=== PATIENT | female | born 1945 | race Caucasian/White ===

== ENCOUNTER 2017-11-17 19:13 | Inpatient (IN) | payer OTHER, MEDICAID ==
[~2017-11-17] VITALS: Ht 162.6 cm; Wt 86.3 kg
[~2017-11-17 19:13] MED LIST: AMBIEN 5 MG TABL5 M1 PO; ASPIR 8181 MG PO; CENTRUM SILVER1 EAC4 PO; CLONIDINE0.1 PO; COUMADIN 4 MG TA4 M1 PO; EXELON1 EAC1 TOP; FISH OIL 1,001000 M2 PO; GLIPIZIDE 10 MG10 MG PO; GLUCOSAMINE S1000 M3 PO; GLYBURIDE 2.52.5 MG PO; HYDRALAZINE 2525 MG PO; LASIX 40 MG TAB40 M2 PO; LISINOPRIL20 MG PO; MAGOX 400400 MG PO; METFORMIN HCL500 MG PO; MIRAPEX0.125 MG PO; OMEPRAZOLE 20 M20 MG PO; SIMVASTATIN40 MG PO; SYNTHROID125 MCG PO; TYLENOL EXTRA500 MG PO; VITAMIN D1000 UNI1 PO
[2017-11-17 19:19] VITALS: BP 185/103
[2017-11-17] MEDS ORDERED: JANUVIA100 MG PO (19:23)
[2017-11-17] MEDS ORDERED: CLEOCIN HCL150 MG PO (19:24)
[2017-11-17 19:48] LABS: ABSOLUTE EOSINOPHILS 0.1 thou/uL (0.0-0.7); ABSOLUTE LYMPHOCYTES 1.4 thou/uL (0.8-5.3); ABSOLUTE MONOCYTES 0.6 thou/uL (0.0-1.2); ABSOLUTE NEUTROPHILS 3.4 thou/uL (1.6-8.1); BASOPHILS 0.8 %; EOSINOPHILS 2.2 %; HEMATOCRIT 35.6 % (37.0-47.0); HEMOGLOBIN 11.6 gm/dL (12.0-15.0); MCH 28.8 pg (26.0-34.0); MCHC 32.4 g/dL (28.0-37.0); MCV 88.9 fL (80.0-100.0); MONOCYTES 11.1 %; MPV 8.8 fl. (7.2-11.1); NUCLEATED RBCS 0 /100WBC; PLATELET COUNT* 192 thou/uL (150-400); POLYS 60.9 %; RBC 4.01 mil/uL (4.20-5.00); RDW-CV 14.8 % (10.5-14.5); WBC 5.6 thou/uL (4.0-11.0)
[2017-11-17 19:56] LABS: ANION GAP 5 mmol/L (7-16); BUN 23 mg/dL (7-18); CALCIUM 8.7 mg/dL (8.5-10.1); CHLORIDE 103 mmol/L (98-107); CO2 31 mmol/L (21-32); GLUCOSE 192 mg/dL (70-99); POTASSIUM 4.7 mmol/L (3.5-5.1); SODIUM 139 mmol/L (136-145)
[2017-11-17 19:59] LABS: INR 2.4; PROTIME 23.4 Seconds (9.20-11.50)
[2017-11-17 20:07] LABS: ALBUMIN 3.3 g/dL (3.4-5.0); ALKALINE PHOSPHATASE 102 U/L (46-116); LIPASE 87 U/L (73-393); NT-PRO BRAIN NAT PEPTIDE 1412 pg/mL (<300); SGOT 15 U/L (15-37); SGPT 27 U/L (30-65); TOTAL BILIRUBIN 0.3 mg/dL (<0.1-1.0); TOTAL PROTEIN 6.5 g/dL (6.4-8.2); TROPONIN-I LEVEL <0.06 ng/mL (<0.06)
[2017-11-17 21:47] LABS: URINE BILIRUBIN NEGATIVE (Negative); URINE BLOOD NEGATIVE (Negative); URINE CLARITY CLEAR; URINE COLOR STRAW; URINE GLUCOSE-RANDOM NEGATIVE (Negative); URINE KETONES NEGATIVE (Negative); URINE LEUKOCYTES-REFLEX NEGATIVE (Negative); URINE NITRITE-REFLEX NEGATIVE (Negative); URINE PROTEIN NEGATIVE (Negative); URINE UROBILINOGEN 0.2 E.U./dl (0.2-1.0)
[2017-11-17 22:33] VITALS: BP 144/90
[2017-11-17 23:12] VITALS: BP 150/86
[2017-11-18] MEDS ORDERED: SYNTHROID150 MCG PO (00:30)
[2017-11-18] MEDS ORDERED: COUMADIN 2 MG TA2 M1 PO (00:38)
--- NOTE | 2017-11-18 01:49 | NUR ---
PT ADMITTED DUE TO HTN URGENCY THAT WAS RESOLVED IN THE ED WITHOUT INTERVENTION, EDEMA, AND DYSPNEA, PT AND [id number] REPORTED THE PT HAD HAD SOA/DIZZINESS FOR A WHILE BUT IT GOT WORSE TODAY AND RUTH ANN CATHERINE TOLD THEM TO BE SEEN IF SHE GOT WORSE, PT CURRENTLY SEEN BY DR MENDOSA AND IS WEARING A HALTER MONITOR, PT [id number] STATED HER AFIB IS CHRONIC BUT THEY THINK HER DIZZINESS IS FROM WHEN HER HR DROPS INTO THE 20-30 AND SHE IS BEING EVALUATED FOR A PACE MAKER, PT IS A/OX4, 2L NC, AF ON THE MONITOR, UP WITH 1 TO BSC, NO C/O PAIN OR SOA AT TIME OF ADMIT, PT REFUSED TO TAKE HER PERSONAL UNDERWEAR AND PAD OFF, PT HAS STRESS INCONT, HOME MED REC CORRECTED IN [facility], ADMIT ASSESSMENT COMPLETED, FALL PRECAUTIONS IN PLACE, VSS, WILL CONT TO MONITOR.
[2017-11-18 03:22] LABS: MCH 28.6 pg (26.0-34.0); MCHC 32.5 g/dL (28.0-37.0); MCV 88.1 fL (80.0-100.0); RBC 3.86 mil/uL (4.20-5.00); RDW-CV 15.1 % (10.5-14.5); WBC 6.3 thou/uL (4.0-11.0)
[2017-11-18 03:51] LABS: ALBUMIN 3.1 g/dL (3.4-5.0); CALCIUM 8.6 mg/dL (8.5-10.1); CREATININE 1.1 mg/dL (0.6-1.3); POTASSIUM 4.4 mmol/L (3.5-5.1); TOTAL BILIRUBIN 0.2 mg/dL (<0.1-1.0); TOTAL PROTEIN 5.7 g/dL (6.4-8.2)
[2017-11-18 03:57] VITALS: BP 150/88
[2017-11-18 08:00] VITALS: BP 162/76
--- NOTE | 2017-11-18 10:23 | EKG ---
[place] [address] ELECTROCARDIOGRAM REPORT Name: MAGGIE MORALES Room: [address] ADM IN [facility].#: [id number] Admission: 11/17/17 Attend Phys: Jojo Spann Discharge: Date of : 47 Report #: [id number] THIS REPORT FOR: //name// [facility] ED Test Date: 2017-11-17 Test Time: 19:20:46 Pat Name: MAGGIE MORALES Department: Room: [facility] Gender: F Forging Die Finisher: 9 : 1945 Requested By: Yovana Sue Order Number: [id number] MD: Gordon Dominguez Measurements Intervals [place] Rate: 87 P: [place]: QRS: -50 QRSD: 119 T: 104 QT: 391 QTc: 471 Interpretive Statements Atrial fibrillation Left anterior fascicular block LVH with secondary repolarization abnormality Compared to ECG 08/16/2017 10:59:46 Left ventricular hypertrophy now present Early repolarization now present Electronically Signed On 11-18-2017 10:23:27 ADAPTIVE PHYSICAL EDUCATION TEACHER by Gordon Dominguez [email or web address] <ELECTRONICALLY SIGNED> By: Gordon Dominguez MD, FAC 11/18/17 1023 1920 1920 Gordon Dominguez MD, [facility] /EPI
[2017-11-18 11:50] VITALS: BP 170/86
--- NOTE | 2017-11-18 11:57 | NUR ---
CM ASSESSMENT: Pt is A&O. Resides at home alone. Independent with ADLs, continues to cook and clean, children provide transportation needs. Pt has a walker and cane at home that she can use if needed, Pt stated that she hasn't needed to use either of them recently. Pt has a cpap, that she uses sometimes, does not remember the name of the company that provided it, states it has been many years ago. No hx of HH. Hx of skilled at [facility] many years ago. Supportive family that is involved in POC. Pt's goal is to return home once medically stable. No needs anticipated.
[2017-11-18 16:53] VITALS: BP 125/85
--- NOTE | 2017-11-18 19:05 | NUR ---
SYLVESTER RESTING IN BED. UP AD CHERELLE IN ROM, LOW RISK FOR FALLS. PATIENT AOX4. PATIENT DOES SUFFER FROM DEMENTIA BUT HAS NO OUTWARD EXPRESSION TODAY. AWAITNNG INR DECREASE FOR PACEMAKER PLACEMENT. HOULRY ROUNDING COMPLETED FOR PATIENT SAFETY.
[2017-11-18 20:10] VITALS: BP 135/93
[2017-11-19 00:16] VITALS: BP 102/63
--- NOTE | 2017-11-19 03:10 | NUR ---
ASSUMED CARE AT 1999, ASSESSMENT CHARTED. PATIENT ALERT/ORIENTED X4, SITTING UP IN CHAIR IN ROOM. UP WITH SBA, WALKED AROUND SECOND FLOOR X2 WITH STAFF AT SIDE. DENIES PAIN OR NEEDS. REFUSING SCD'S. HS SNACK GIVEN WITH HS MEDS. BED/CHAIR ALARM ON. CALL LIGHT WITHIN REACH, ENCOURAGED TO CALL FOR NEEDS.
[2017-11-19 04:20] VITALS: BP 120/68
[2017-11-19 05:44] LABS: INR 2.2
[2017-11-19 06:28] LABS: CHOLESTEROL 134 mg/dL (<200); HDL CHOLESTEROL 57 mg/dL (>40); LDL CHOLESTEROL 56 mg/dL (<100); TC:HDL 2.4 Ratio (Not establshd); TRIGLYCERIDE 109 mg/dL (<150); VLDL 22 mg/dL (<40)
[2017-11-19 06:29] LABS: SERUM ASSESSMENT Clear
[2017-11-19 08:00] VITALS: BP 135/92
[2017-11-19 11:52] VITALS: BP 141/95
--- NOTE | 2017-11-19 12:38 | CON ---
[address] [address] CONSULTATION Name: CARMENMAGGIE KAY Room: [address] IN .R.#: [id number] Admission: 11/17/17 Attend Phys: Jojo Spann Discharge: Date of : 47 Report #: [id number] THIS REPORT FOR: //name// CC: CIERRA Morgan DATE OF SERVICE: 11/18/2017 HISTORY OF PRESENT ILLNESS: The patient is a 72-year-old single white female who I was asked to see in the hospital today after she complained of being short of breath. The patient presented in approximately 2008 with a myocardial infarction. She apparently had coronary artery stenting and eventually underwent coronary artery bypass surgery times and mitral valve repair in [place]. She subsequently moved to [place] and I followed her for the last several years. Her last echocardiogram in June 2017, showed normal ejection fraction, with only mild residual regurgitation of the mitral valve. She apparently had evidence of previous stroke on MRI and has memory loss. However, she continues to go to the gym in the [employer] [place] for exercise. She denies any recent chest pain. She does have chronic atrial fibrillation and has been chronically anticoagulated. I last saw her in the cardiology clinic in June 2017. Recently, she complained of feeling episodes of lightheadedness. She saw my nurse practitioner last month, who recommended an event recorder. Event recorder showed permanent atrial fibrillation. She had slow rates of atrial fibrillation with rates down into the 30s. She also had rates up to the 140s. She is having pauses up to 3.4 seconds in duration. My nurse practitioner discussed with the patient that she might require a pacemaker. Last night, the patient was at home when she felt lightheaded and short of breath. Her daughter brought her to the emergency room last night and she was admitted. She denied any recent fever, cough, increasing edema. She has had no syncope, but has several episodes a week where she felt lightheaded even while sitting. Recently, her blood pressure has been elevated. PAST MEDICAL HISTORY: Otherwise is significant for carpal tunnel surgery, cataract extraction, cholecystectomy, shoulder surgery, and knee replacement. She has a history of hypertension, diabetes, and hyperlipidemia. She has a history of memory loss and previous stroke. CURRENT MEDICATIONS: Consists of losartan/HCTZ, lisinopril, clonidine, glipizide, Synthroid, metformin, simvastatin, warfarin, omeprazole, Exelon, Mirapex for restless legs syndrome, Lasix as needed for edema, and glyburide. ALLERGIES: She has intolerance to SULFA DRUGS. FAMILY HISTORY: Her [place] [address] CONSULTATION Name: MAGGIE MORALES Room: [address] IN ..#: [id number] Admission: 11/17/17 Attend Phys: Jojo Spann Discharge: Date of : 47 Report #: [id number] SOCIAL HISTORY: She is . No history of smoking or alcohol abuse. REVIEW OF SYSTEMS: She has had no history of asthma, peptic ulcer disease, liver disease, kidney disease, or cancer. She has chronic back pain, has received stem cell treatment in the past. No history of psychiatric illness. PHYSICAL EXAMINATION: GENERAL: Revealed an elderly female who appeared in no acute distress. VITAL SIGNS: She had a blood pressure 160/90, pulse is 60. She is afebrile. HEENT: She was anicteric. Conjunctivae are pink. Mucous members are moist. NECK: Veins do not appear distended. No carotid bruits. CHEST: Clear to auscultation. HEART: Irregular rhythm. No significant murmur. ABDOMEN: Soft. EXTREMITIES: Had no edema. Dorsalis pedis pulse cannot be palpated. SKIN: Cool and dry. NEUROLOGIC: Nonfocal. LYMPH: No adenopathy. MUSCULOSKELETAL: No joint effusion. PSYCHIATRIC: Mood is appropriate. Her ECG on admission showed atrial fibrillation, left axis deviation. Her workup in the emergency room, she had a portable chest x-ray that showed cardiomegaly, no pulmonary edema. LAB WORK: Sodium 139, creatinine 1.0, glucose 266. Her liver function studies were normal. Troponin was 0.06. BNP 1412. INR was 2.4. White blood cell count 6.3, hemoglobin 11. Urinalysis negative protein, negative for leukocytes. IMPRESSION AND RECOMMENDATIONS: 1. Sick sinus syndrome. The patient with history of dizzy spells and pauses. Recommend permanent pacemaker. 2. Atrial fibrillation. Hold warfarin. We will need to hold off pacemaker until INR is less than 1.6. 3. Coronary artery disease. Previous bypass surgery. No recent angina. Since the patient is on warfarin, I would not recommend aspirin. 4. Diabetes. 5. Previous stroke. 6. Hypertension. The patient is on multiple medications. 7. Previous mitral valve repair. 8. Dementia. 9. Shortness of breath. Possibly related to slow rates of atrial fibrillation. <ELECTRONICALLY SIGNED> By: Gordon Dominguez MD, [facility] 11/19/17 1238 0843 [id number] Marcelino Dominguez MD, FACC /nt
[2017-11-19 16:38] VITALS: BP 116/76
[2017-11-19 18:36] LABS: INR 1.7; PROTIME 16.7 Seconds (9.20-11.50)
[2017-11-19 20:00] VITALS: BP 125/81
--- NOTE | 2017-11-19 22:23 | NUR ---
RECIEVED REPORT AND ASSUMED CARE OF PATIENT AT 1930. MACHINE FASTENER IN PLACE TRACING AFIB. ASSESSMENT AND VITALS COMPLETED CHARTED, VSS. PATIENT A&OX4. PATIENT ON ROOM AIR WITH O2 SATS 99%. PATIENT DENIES PAIN AND DISCOMFORT. PATIENT STATES SHE IS "WORRIED ABOUT THE PACEMAKER PLACEMENT TOMORROW." COMFORT AND REASSURANCE GIVEN TO PATIENT, PATIENT VERBALIZES APPRECIATION FOR GIVING HER COMFORT. PATIENT INFORMED THAT SHE WILL BE NPO AT MIDNIGHT, SNACK PROVIDED BEFORE BEDTIME. PATIENT'S GOAL IS TO REST COMFORTABLY AND DECREASE ANXIETY ABOUT PROCEDURE TOMORROW. CALL LIGHT WITHIN REACH
[2017-11-20] VITALS (10 sets, daily range): BP systolic 114–150; BP diastolic 70–96
[2017-11-20 05:24] LABS: INR 1.4; PROTIME 13.5 Seconds (9.20-11.50)
--- NOTE | 2017-11-20 05:47 | NUR ---
PATIENT PROGRESSING TOWARDS GOALS: PATIENT REMAINED NPO FOR PACEMAKER PROCEDURE. PATIENT REPORTS "FEELING BETTER ABOUT THE PROCEDURE AND HER DAUGHTER IS GOING TO MONITOR HER AFTER THE PROCEDURE." PATIENT HAS C/O PAIN IN LEFT FOOT, PATIENT SAYS IT IS ARTHRITIS. TYLENOL ADMINISTERED THIS AM AND ICE PACK APPLIED TO FOOT. PATIENT RECIEVED A BATH THIS AM. PATIENT IS NOW RESTING IN BED. HOURLY ROUNDING OBSERVED. CALL LIGHT WITHIN REACH
--- NOTE | 2017-11-20 11:00 | NUR ---
ASSUMED PT CARE AT 0700 PT IS ALERT AND ORIENTED X 4 PT IS A FALL RISK BED ALARM IS ON, RESIDENTIAL MORTGAGE UNDERWRITER CALLED ASKED ABOUT PT ALLERGY TO CONTRAST STATED TO ORDER PER PROTOCOL BENADRYL AND SOULMEDROL AND GIVE 45 MINUTES WHICH IS 0930 BEFORE RESIDENTIAL MORTGAGE UNDERWRITER GETS PT, BENADRYL AND SOULMEDROL GIVEN, PT STATES SHE HAS PAIN AND WOULD LIKE TYLENOL AND MEDICATION FOR RESTLESS LEG SYNDROME PT EDUCATED ON MEDICATION TIMES SINCE BOTH MEDS WERE GIVEN AROUND 0600 AND THESE MEDS ARE SCHEDULED, PT IS UP WITH ASSIST X 1 TO BSC, PT IS SR WITH 1ST ON MONITOR, PT IS PLEASANT AND COOPERATIVE, PT WENT DOWN FOR PACEMAKER PT MAY DISCHARGE AFTER PROCEDURE, WILL CONTINUE TO MONITOR
--- NOTE | 2017-11-20 14:04 | NUR ---
This RN agrees with the assessments of Ada CASTILLO
[2017-11-21 00:03] VITALS: BP 139/86
[2017-11-21 04:12] VITALS: BP 167/82
--- NOTE | 2017-11-21 05:25 | NUR ---
PATIENT REMAINS STABLE THROUGHOUT SHIFT AND IS PROGRESSING TOWARDS GOALS: VSS. PATIENT A&OX4, FORGETFUL AT TIMES. NETWORK SECURITY ANALYST TRACING AFIB. PATIENT DENIES PAIN AND DISCOMFORT. PACEMAKER SITE WELL APPROXIMATED WITH MINIMAL BRUISING AND REDNESS. PATIENT HAS RESTED WELL THROUGHOUT THE NIGHT AND IS ANTICIPATING DISCHARGE TODAY. HOURLY ROUNDING OBSERVED. CALL LIGHT WITHIN REACH
[2017-11-21 08:24] VITALS: BP 198/98
[2017-11-21 08:27] VITALS: BP 198/98
--- NOTE | 2017-11-21 09:35 | NUR ---
ASSUMED PT CARE AT 0700 PT IS ALERT AND ORIENTED X 4 PT IS FORGETFUL, PT C/O PAIN GAVE TYLENOL WHICH PT STATES HELPS PT BLOOD PRESSURE ELEVATED GAVE SCHEDULED BLOOD PRESSURE MEDS, CARDIOLOGY CLEARED PT TO DISCHARGE NOTIFIED DR CORDOVA WHO STATED HE WAS FINE WITH PT DISCHARGING SINCE CARDIOLOGY FILLED PUT PAPERWORK HE DID NOT NEED TO SEE PT, IV REMOVED, WILL CONTINUE TO MONITOR
--- NOTE | 2017-11-21 11:23 | CARD ---
[address] [address] CARDIAC CATH REPORT Name: MAGGIE MORALES Room: [address] IN ..#: [id number] Admission: 11/17/17 Attend Phys: Jojo Spann Discharge: 11/21/17 Date of : 47 Report #: [id number] THIS REPORT FOR: //name// APPROVED REPORT Patient Status: In-Patient Room #: 218 Event Personnel: Gordon Dominguez Drug Worker, Asher Gustafson Hintermaier, Elena RN RN, Marylin Arnold RN Monitor, Nicole Yap RN RN Exam: Insertion of Single Chamber Permanent Pacemaker Indications: Sick Sinus Syndrome/Tachy Naresh Syndrome The patient is a 72 year-old female with a history of Atrial Fibrillation. Implanted Devices: single chamber mri compatible biotronic pacemaker generator with ventricular active fixation pacing lead. Procedure The patient underwent informed consent. We discussed the details of the procedure including the risks, which include, but not limited to bleeding, infection, vascular damage, cardiac perforation, and pneumothorax. She understood these risks and was willing to proceed. As such, she was brought to the EP/Cardiac Catheterization laboratory in a fasting and sedated state and prepped and draped in a sterile fashion, received IV antibiotics prior to initiation of the procedure and a venogram was performed showing patency of the left axillary vein. The patient underwent conscious sedation, with no related complications. The patient was brought to the EP/Cardiac Catheterization laboratory and the left chest and shoulder were prepped and draped in a sterile manner. During this case, Fluoroscopy and low osmolar contrast were used for imaging. The left subclavian region was infiltrated with 2% Lidocaine with Epinephrine subcutaneous anesthesia. A transverse incision was made in the left upper chest cavity. The subcutaneous pocket was formed via blunt dissection. Percutaneous venous access was achieved and an introducer sheath was inserted into the left Subclavian vein. Sheaths were positions using the modified Seldinger technique Capturing and sensing [place] [address] CARDIAC CATH REPORT Name: MAGGIE MORALES ANTHONY Room: [address]#: [id number] Admission: 11/17/17 Attend Phys: Jojo Spann Discharge: 11/21/17 Date of : 47 Report #: [id number] The ventricular lead was interrogated and with adequate threshold for pacing and sensing Patient had documented Contrast Allergy and was premedicated with Solumedrol 125mg IV and Benadryl 50mg IV prior to procedure. Electrode Parameters R Wave: 11 mv Ventricular Threshold: 0.6 v Ventricular Resistance: 741 ohm Single Chamber The ventricular lead was attached to the appropriate receptacle on the pulse generator and set screws firmly tightened to insure adequate contact and stability. The lead and pulse generator were placed into the subcutaneous pocket. Sharp and sponge counts were confirmed to be correct. At this time the pocket was closed subcutaneously with a 0 Vicryl and the skin was closed with a 4.0 Vicryl. The operative site was dressed in sterile fashion with skin affix and the patient was transferred to the floor in stable condition. Complications The patient tolerated the procedure well and there were no complications associated with the procedure. since the patient was on warfarin, the pocket was coated with d-stat flowable. Findings Specimens Removed: N/A Estimated Blood Loss: 10 cc Conclusion successful placement of a single lead pacemaker <ELECTRONICALLY SIGNED> By: Gordon Dominguez MD, FACC 11/21/17 1123 1123 [id number] alberto Dominguez MD, FACC /INF
--- NOTE | 2017-11-21 15:39 | EKG ---
[place] [address] ELECTROCARDIOGRAM REPORT Name: MAGGIE MORALES Room: [address] DIS IN M.R.#: [id number] Admission: 11/17/17 Attend Phys: Jojo Spann Discharge: 11/21/17 Date of : 47 Report #: [id number] THIS REPORT FOR: //name// [facility] Test Date: 2017-11-21 Test Time: 08:53:26 Pat Name: MAGGIE MORALES Department: Room: [address] Gender: F Manager Parking: : 1945 Requested By: Gordon Dominguez Order Number: [id number] MD: Luis Torres Measurements Intervals [place] Rate: 89 P: [place]: QRS: -48 QRSD: 120 T: 99 QT: 403 QTc: 491 Interpretive Statements Atrial fibrillation LVH with IVCD, LAD and secondary repol abnrm Borderline prolonged QT interval Compared to ECG 11/17/2017 19:20:46 Intraventricular conduction delay now present Left anterior fascicular block no longer present Electronically Signed On 11-21-2017 15:39:05 PILL COATER by Luis Torres [email or web address] <ELECTRONICALLY SIGNED> By: Luis Torres MD, FACC 11/21/17 1539 0853 0853 Luis Torres MD, FAC /EPI
== END 2017-11-21 09:57 | disposition home or self-care (01) | DRG 242 ==
LOC: M.ERS 19:13 → M.2W 20:42 → M.TBA-ER 20:42 → M.2W 22:28
PROVIDERS: Emergency Medicine; Internal Medicine Cardiovascular Disease; ADMIT Internal Medicine
PROC: 02HK3JZ Insertion of Pacemaker Lead into Right Ventricle, Percutaneous Approach (ICD-10-PCS; principal; 2017-11-21)
PROC: 0JH604Z Insertion of Pacemaker, Single Chamber into Chest Subcutaneous Tissue and Fascia, Open Approach (ICD-10-PCS; principal; 2017-11-21)
DX: I49.5 Sick sinus syndrome (principal); I50.33 Acute on chronic diastolic (congestive) heart failure; F03.90 Unspecified dementia, unspecified severity, without behavioral disturbance, psychotic disturbance, mood disturbance, and anxiety; I10 Essential (primary) hypertension; I16.0 Hypertensive urgency; Z96.659 Presence of unspecified artificial knee joint; I25.10 Atherosclerotic heart disease of native coronary artery without angina pectoris; I48.91 Unspecified atrial fibrillation; E11.9 Type 2 diabetes mellitus without complications; E78.5 Hyperlipidemia, unspecified; Z98.49 Cataract extraction status, unspecified eye; Z90.49 Acquired absence of other specified parts of digestive tract; Z86.73 Personal history of transient ischemic attack (TIA), and cerebral infarction without residual deficits; Z95.1 Presence of aortocoronary bypass graft; Z79.899 Other long term (current) drug therapy; Z88.8 Allergy status to other drugs, medicaments and biological substances; Z88.1 Allergy status to other antibiotic agents; Z91.041 Radiographic dye allergy status; Z82.49 Family history of ischemic heart disease and other diseases of the circulatory system

== ENCOUNTER 2018-07-19 18:02 | Inpatient (IN) | payer OTHER ==
[~2018-07-19] VITALS: Ht 162.6 cm; Wt 87.1 kg
[~2018-07-19 18:02] MED LIST changes: +CLEOCIN HCL150 MG PO; +COUMADIN 2 MG TA2 M1 PO; +JANUVIA100 MG PO; +SYNTHROID150 MCG PO
[2018-07-19 19:45] VITALS: BP 176/98
[2018-07-19 21:03] LABS: ABSOLUTE LYMPHOCYTES 1.6 thou/uL (0.8-5.3); ABSOLUTE MONOCYTES 0.6 thou/uL (0.0-1.2); ABSOLUTE NEUTROPHILS 4.1 thou/uL (1.6-8.1); BASOPHILS 0.4 %; EOSINOPHILS 0.6 %; HEMATOCRIT 36.4 % (37.0-47.0); HEMOGLOBIN 11.5 gm/dL (12.0-15.0); LYMPHOCYTES 24.7 %; MCHC 31.6 g/dL (28.0-37.0); MCV 88.5 fL (80.0-100.0); MONOCYTES 8.8 %; MPV 8.5 fl. (7.2-11.1); NUCLEATED RBCS 0 /100WBC; PLATELET COUNT* 159 thou/uL (150-400); POLYS 65.5 %; RBC 4.11 mil/uL (4.20-5.00); RDW-CV 15.6 % (10.5-14.5); WBC 6.3 thou/uL (4.0-11.0)
[2018-07-19 21:36] LABS: CALCIUM 9.1 mg/dL (8.5-10.1); CREATININE 0.9 mg/dL (0.6-1.3); POTASSIUM 4.3 mmol/L (3.5-5.1)
[2018-07-19 21:40] LABS: ALBUMIN 3.4 g/dL (3.4-5.0); TOTAL BILIRUBIN 0.4 mg/dL (<0.1-1.0); TOTAL PROTEIN 6.3 g/dL (6.4-8.2)
[2018-07-20] VITALS (7 sets, daily range): BP systolic 107–165; BP diastolic 55–101
[2018-07-20 05:02] LABS: CHOLESTEROL 136 mg/dL (<200); HDL CHOLESTEROL 68 mg/dL (>40); LDL CHOLESTEROL 55 mg/dL (<100); TRIGLYCERIDE 66 mg/dL (<150); VLDL 13 mg/dL (<40)
[2018-07-20 05:04] LABS: SERUM ASSESSMENT CLEAR
[2018-07-20 11:34] LABS: NT-PRO BRAIN NAT PEPTIDE 3015 pg/mL (<300); TROPONIN-I LEVEL <0.06 ng/mL (<0.06)
[2018-07-21] MEDS ORDERED: NAMENDA XR28 MG PO (00:47)
[2018-07-21] MEDS ORDERED: CELEXA 10 MG TA10 M1 PO (00:49)
[2018-07-21] MEDS ORDERED: COUMADIN 4 MG TA4 M1 PO (00:51)
[2018-07-21 04:00] VITALS: BP 153/70
[2018-07-21 09:30] VITALS: BP 163/73
--- NOTE | 2018-07-21 11:33 | EKG ---
[place] [address] ELECTROCARDIOGRAM REPORT Name: JOSELidiaMAGGIE Room: [address] ADM IN M.R.#: [id number] Admission: 07/19/18 Attend Phys: Asher Keith MD Discharge: Date of : 47 Report #: [id number] THIS REPORT FOR: //name// [facility] Test Date: 2018-07-19 Test Time: 21:05:13 Pat Name: MAGGIE MORALES Department: Room: [address] Gender: F Grades 1 Through 5 Teacher: : 1945 Requested By: Asher Keith Order Number: [id number] Reading MD: Gordon Dominguez Measurements Intervals [place] Rate: 83 P: ID: QRS: -51 QRSD: 117 T: 139 QT: 404 QTc: 475 Interpretive Statements Afib/flut and V-paced complexes Left anterior fascicular block LVH w/ repol abnormalities, possible ischemia Compared to ECG 11/21/2017 08:53:26 no change Electronically Signed On 07-21-2018 11:33:09 FOOD SALES CLERK by Gordon Dominguez [email or web address] <ELECTRONICALLY SIGNED> By: Gordon Dominguez MD, FACC 07/21/18 1133 04 04 Gordon Dominguez MD, [facility] /EPI
[2018-07-21 16:00] VITALS: BP 142/73
[2018-07-22] VITALS: BP 144/70
[2018-07-22 04:00] VITALS: BP 160/75
[2018-07-22 05:20] LABS: ABSOLUTE EOSINOPHILS 0.1 thou/uL (0.0-0.7); ABSOLUTE LYMPHOCYTES 1.5 thou/uL (0.8-5.3); ABSOLUTE MONOCYTES 0.6 thou/uL (0.0-1.2); ABSOLUTE NEUTROPHILS 3.5 thou/uL (1.6-8.1); BASOPHILS 0.4 %; HEMATOCRIT 34.9 % (37.0-47.0); HEMOGLOBIN 11.1 gm/dL (12.0-15.0); LYMPHOCYTES 26.4 %; MCH 28.1 pg (26.0-34.0); MCHC 31.7 g/dL (28.0-37.0); MCV 88.4 fL (80.0-100.0); MONOCYTES 10.1 %; MPV 9.6 fl. (7.2-11.1); NUCLEATED RBCS 0 /100WBC; PLATELET COUNT* 147 thou/uL (150-400); POLYS 62.1 %; RBC 3.95 mil/uL (4.20-5.00); RDW-CV 15.4 % (10.5-14.5); WBC 5.6 thou/uL (4.0-11.0)
[2018-07-22 05:25] LABS: CALCIUM 8.8 mg/dL (8.5-10.1); CREATININE 0.9 mg/dL (0.6-1.3); POTASSIUM 3.8 mmol/L (3.5-5.1)
[2018-07-22 09:30] VITALS: BP 155/93
[2018-07-22 12:00] VITALS: BP 110/67
--- NOTE | 2018-07-22 14:24 | 2DMMODE ---
[place] [address] 2 D/M-MODE ECHOCARDIOGRAM Name: JOSELidiaMAGGIE ANTHONY Room: [address] IN [facility]#: [id number] Admission: 07/19/18 Attend Phys: Asher Keith, Discharge: Date of : 47 Date of Service: 07/22/18 1423 Report #: [id number] THIS REPORT FOR: //name// APPROVED REPORT Study performed: 07/22/2018 11:41:59 EXAM: Comprehensive 2D, Doppler, and color-flow Echocardiogram Patient Location: In-Patient Room #: [facility] Status: routine BSA: 1.92 HR: 82 bpm BP: 110/67 mmHg Other Information Study Quality: Good Indications Atrial Fibrillation Chest Pain 2D Dimensions IVSd: 10.68 (7-11mm) LVOT Diam: 20.29 (18-24mm) LVDd: 46.17 mm PWd: 9.25 (7-11mm) Ascending Ao: 31.55 (22-36mm) LVDs: 25.02 (25-40mm) Aortic Root: 27.30 mm Volumes Left Atrial Volume (Systole) LA ESV Index: 30.30 mL/m2 Aortic Valve AoV Peak Prince.: 1.00 m/s AO Peak Gr.: 4.02 mmHg LVOT Max P.75 mmHg AO Mean Gr.: 2.26 mmHg LVOT Mean P.24 mmHg LVOT Max V: 1.09 m/s AO V2 VTI: 15.49 cm LVOT Mean V: 0.69 m/s JENN (VTI): 3.63 cm2 LVOT V1 VTI: 17.40 cm Mitral Valve MV Decel. Time: 342.55 ms MV PHT: 99.34 ms MVA (PHT): 2.21 [place]2 [place] [address] 2 D/M-MODE ECHOCARDIOGRAM Name: JOSELidiaMAGGIE KAY Room: [address] IN [facility]#: [id number] Admission: 07/19/18 Attend Phys: Asher Keith, Discharge: Date of : 47 Date of Service: 07/22/18 1423 Report #: [id number] TDI Medial E' Prince.: 0.10 m/s Lateral E' Prince.: 0.08 m/s Pulmonary Valve PV Peak Prince.: 0.80 m/s PV Peak Gr.: 2.58 mmHg Tricuspid Valve RAP Estimate: 5.00 mmHg TR Peak Gr.: 21.87 mmHg RVSP: 26.87 mmHg PA Pressure: 26.87 mmHg Left Ventricle The left ventricle is normal size. There is normal LV segmental wall motion. There is normal left ventricular wall thickness. Left ventricular systolic function is normal. LVEF is 60-65%. This study is not technically sufficient to allow evaluation of the LV diastolic function. Right Ventricle The right ventricle is normal size. The right ventricular systolic function is normal. Pacemaker lead is present in the right ventricle. Atria Left atrium is mildly dilated. Right atrium is mildly dilated. Aortic Valve The aortic valve is normal in structure. No aortic regurgitation is present. There is no aortic valvular stenosis. Mitral Valve Mitral Valve repair Trace mitral regurgitation. No evidence of mitral valve stenosis. Tricuspid Valve The tricuspid valve is normal in structure. Mild tricuspid regurgitation. Pulmonic Valve The pulmonary valve is normal in structure. There is no pulmonic valvular regurgitation. Great Vessels The aortic root is normal in size. [place]C [place] [address] 2 D/M-MODE ECHOCARDIOGRAM Name: MAGGIE MORALES Room: [address]#: [id number] Admission: 07/19/18 Attend Phys: Asher Keith, Discharge: Date of : 47 Date of Service: 07/22/18 1423 Report #: [id number] collapses >50% with inspiration. Pericardium There is no pericardial effusion. <Conclusion> The left ventricle is normal size. There is normal left ventricular wall thickness. Left ventricular systolic function is normal. LVEF is 60-65%. Pacemaker lead is present in the right ventricle. Left atrium is mildly dilated. Right atrium is mildly dilated. Mitral Valve repair Trace mitral regurgitation. Mild tricuspid regurgitation. IVC is normal in size and collapses >50% with inspiration. <ELECTRONICALLY SIGNED> By: Luis Torres MD, FACC 07/22/18 1423 1423 1423 Luis Torres MD, FACC /INF
--- NOTE | 2018-07-22 15:03 | CON ---
[address] [address] CONSULTATION Name: CARMENMAGGIE ANTHONY Room: [address] IN .R.#: [id number] Admission: 07/19/18 Attend Phys: Asher Keith MD Discharge: Date of : 47 Report #: [id number] THIS REPORT FOR: //name// CC: Asher RIGGS HISTORY OF PRESENT ILLNESS: I was asked by Dr. Keith to see this 73-year-old white female in cardiology consultation regarding evaluation and treatment of chest pain. This lady has known coronary artery disease. She is status post coronary artery bypass graft surgery several years ago. Additionally, she has known sick sinus syndrome and is status post pacemaker. She has permanent atrial fib as well. She is not a good historian. She has a history of dementia. However, yesterday she had an episode of chest pain at rest. She was sitting. The pain was substernal. It was moderate in intensity. It was a pressure sensation. There was no radiation of the pain. There were no associated symptoms other than mild shortness of breath. She was taken to the Emergency Room and there received a nitroglycerin, which promptly began to diminish the discomfort and she had nitroglycerin paste placed and after about an hour from the onset of the pain the pain went away. She did not have a troponin elevation. Her EKG showed atrial fibrillation with a controlled ventricular response. The heart rate was 83. There was left axis deviation and left anterior fascicular block. There was left ventricular hypertrophy. There were nonspecific ST-T abnormalities, particularly in the anterolateral chest leads suspicious for ischemia. There were rare ventricular paced beats. The patient has had no further chest discomfort. PAST MEDICAL HISTORY: This lady has the above problems. Additionally, she has non-insulin dependent diabetes mellitus, essential hypertension. She is status post mitral valve repair many years ago. She has had a previous CVA. She has hypothyroidism. She is also said to have obstructive sleep apnea. She has hypercholesterolemia. ALLERGIES: ALLERGIC TO CONTRAST DYE OR X-RAY DYE AND SHE IS ALSO ALLERGIC TO BACTRIM. SHE IS ALLERGIC TO RED DYE. HOME MEDICATIONS: Include vitamin D 1000 units a day, clonidine 0.1 mg b.i.d., fish oil 1000 mg daily, Lasix 40 mg daily, glucosamine 1000 mg daily, hydralazine 25 mg t.i.d., levothyroxine 150 mcg daily, lisinopril 20 mg daily, losartan/hydrochlorothiazide 100/25 mg daily, magnesium oxide 400 mg daily, metformin 1000 mg b.i.d., multivitamin daily, omeprazole 20 mg at bedtime, Mirapex apparently for tremors 0.125 mg t.i.d., Exelon patch daily, simvastatin 40 mg daily and Januvia 100 mg daily. FAMILY HISTORY: Remarkable for sister having a CVA. Father had heart disease. Sister has diabetes. She is not sure about her mother's health problems. Again, dementia is an issue here. [address] [place] [address] CONSULTATION Name: MAGGIE MORALES Room: [address] IN [facility]#: [id number] Admission: 07/19/18 Attend Phys: Asher Keith MD Discharge: Date of : 47 Report #: [id number] SOCIAL HISTORY: She has never smoked and does not drink, does not use illegal drugs. REVIEW OF SYSTEMS: Positive for shortness of breath. Otherwise, review of systems is negative for some 45 different complaints in 14 different system categories. Please see her review of systems form for details of the negatives in review of systems. PHYSICAL EXAMINATION: GENERAL: She presents as a well-developed, well-nourished white female, in no acute distress. VITAL SIGNS: Pulse is 73 and regular, blood pressure is 138/73, respirations are 16 and regular, temperature is 98.3 degrees. HEENT: Head was atraumatic. Eyes clear. NECK: Supple. There is no jugular venous distention or hepatojugular reflux. Thyroid is not enlarged. There is no adenopathy. SKIN: Warm and dry. Mucous membranes are moist. LUNGS: Clear to auscultation and percussion. HEART: Revealed normal first and second heart sounds. There is no S4, no S3. There are no murmurs, rubs, thrills, heaves or gallops. PMI is not displaced. The rhythm was slightly irregular and the rate was 75. ABDOMEN: Soft, flat, nontender, no palpable masses, no organomegaly. EXTREMITIES: Reveal no cyanosis, clubbing or edema. NEUROLOGIC: The patient mentated normally, talked normally and moved all extremities normally. LABORATORY DATA: Note, her troponins were negative x 2. I believe more are pending. Chest x-ray showed mild cardiomegaly and slight vascular congestion. IMPRESSION: 1. Chest pain, possibly ischemic. 2. Coronary artery disease. 3. Status post coronary artery bypass graft surgery. 4. Sick sinus syndrome. 5. Status post pacemaker. 6. Dey-ziuaibl-dwcrjyuyr diabetes mellitus. 7. Essential hypertension. 8. Status post mitral valve repair. 9. Dementia. 10. Status post cerebrovascular accident. 11. Hypothyroidism. 12. Hypercholesterolemia. 13. Permanent atrial fibrillation. RECOMMENDATION: She should have a nuclear stress test [place] [address] CONSULTATION Name: MAGGIE MORALES Room: [address] IN ..#: [id number] Admission: 07/19/18 Attend Phys: Asher Keith MD Discharge: Date of : 47 Report #: [id number] Thank you very much for asking me to see the patient. If there are any questions, please feel free to contact me. <ELECTRONICALLY SIGNED> By: Gordon Dominguez MD, FACC 07/22/18 1503 [id number]. Junito Williamson MD, FACC /nt
--- NOTE | 2018-07-22 15:58 | CARDNUC ---
[place] [address] CARDIAC NUCLEAR IMAGING REPORT Name: JOSELidiaMAGGIE KAY Room: [address] IN [facility]#: [id number] Admission: 07/19/18 Attend Phys: Asher Keith, Discharge: Date of : 47 Date of Service: 07/22/18 1557 Report #: [id number] THIS REPORT FOR: //name// APPROVED REPORT Imaging Protocol: Stress Tc-99m/Rest Tc-99m 2 days Study performed: 07/20/2018 10:50:00 Indication: Chest pain Patient Location: In-Patient Room #: 214 Stress Tech: Nevaeh Jimenez Stress Nurse: Lissette Schreiber RN [place] Tech:CAMILO Suggs Ht: 5 ft 4 in Wt: 192 lbs BSA: 1.92 m2 BMI: 32.95 Medical History Medical History: Angina, CAD s/p [place], CAD s/p stent, Hyperlipidemia, HTN, Diabetes, ICD, AFib Medications: Hydralazine, Atorvastatin, Clonidine, ASA 325 MG, Lisinopril, Losartan K+, NTG Allergies: Contrast dye, Sulfa ABT, Trimethoprim Cardiac Risk Factors: Age, DM, HTN, Hyperlipidemia Previous Cardiac Procedures: ICD, Myocardial infarction, PCI Pretest Chest Pain Characteristics: No chest pain Exercise History: Sedentary Physical Disabilities: Foot injury/pain, unsteady gait, SBA x2 Meds Held (24 hrs): NTG Resting Data Rest SPECT myocardial perfusion imaging was performed in supine position 30 minutes following the intravenous injection of 35.4 mCi of Tc-99m Sestamibi. Time of rest injection: 914 Date: 07/22/2018 Time of rest imagin The images were gated to evaluate regional wall motion and calculate left ventricular ejection fraction. Administration Route: IV Administration Site: Left AC Pharmacologic Stress Pharmacologic stress test was performed by injecting Regadenoson 0.4 mg IV push over 10-15 seconds immediately [place] [address] CARDIAC NUCLEAR IMAGING REPORT Name: MAGGIE MORALES Room: [address]#: [id number] Admission: 07/19/18 Attend Phys: Asher Keith, Discharge: Date of : 47 Date of Service: 07/22/18 1557 Report #: [id number] injection of 38.1 mCi of Tc-99m Sestamibi. Time of stress injection: Date: 07/21/2018 Administration Route: IV Administration Site: Left AC Heart Rate at time of stress injection: 98 bpm. Gated Stress SPECT was performed 40 minutes after stress injection. The images were gated to evaluate regional wall motion and calculate left ventricular ejection fraction. Prone imaging was performed. Stress Test Details Stress Test: Pharmacologic stress testing performed using 0.4 mg of regadenoson per 5 mL given IV over 10 seconds. Reason for pharmacologic stress test: physical limitation, unsteady gait, foot injury, SBA x2. HR Max Heart Rate (APMHR): 148 bpm Resting HR: 66 bpm Target HR (85% APMHR): 125 bpm Max HR Achieved: 98 bpm % of APMHR: 66 Recovery HR: 84 bpm BP Resting BP: 129/76 mmHg Recovery BP: 148/73 mmHg ECG Resting ECG: Ventricular paced rhythm Stress ECG: Ventricular paced rhythm Recovery ECG: Ventricular paced rhythm Clinical Reason for Termination: Completed protocol Stress Symptoms: Dizziness, Head fuzzy Exercise duration: 0 min 0 sec Exercise capacity: 1.00 METs The patient tolerated Lexiscan infusion without significant symptoms. Nurse Comments Patient required 2 assist from wheelchair to bed and back. Patient unable to physically walk on treadmill r/t foot problems and unsteady/weak gait. Patient tolerated sitting lexiscan well with some dizziness, head fuzzy per patient statement. Recovery unremarkable. Patient escorted with staff via wheelchair to [place] [address] CARDIAC NUCLEAR IMAGING REPORT Name: JOSELidiaMAGGIE ANTHONY Room: [address] IN [facility]#: [id number] Admission: 07/19/18 Attend Phys: Asher Keith, Discharge: Date of : 47 Date of Service: 07/22/18 1557 Report #: [id number] images. Patient stable with no complaints at that time. Stress ECG Conclusion The baseline 12-lead EKG shows a ventricularly paced rhythm. EKGs obtained during and post Lexiscan infusion show ventricular pacing with occasional underlying [place] QRS complexes with inverted T waves. No acute ST segment changes were noted. Study Quality Study: Good Artifact: No artifact Study Data At rest, the left ventricular ejection fraction was 75%.. Post stress, the left ventricular ejection was 75%.. TID = 1.02. Perfusion There is a moderate size moderate intensity reversible defect involving the lateral wall. No other significant external reversible defects are identified. Wall Motion There is a septal wall motion abnormality noted of uncertain significance. Global LV systolic function is well-preserved. Nuclear Conclusion ECG Findings: non-diagnostic Clinical Findings: negative for ischemia Nuclear Findings: positive for ischemia Exercise Capacity: not assessed Left Ventricular Function: preserved Risk Study: high Myocardial perfusion images suggest lateral wall ischemia. Global LV systolic function is well-preserved. This is a high risk study based onl ischemia involving the lateral wall. <Conclusion> The baseline 12-lead EKG shows a ventricularly paced rhythm. EKGs obtained during and post Lexiscan infusion show ventricular pacing with occasional underlying [place] QRS complexes with inverted T waves. No acute ST segment changes were noted. <ELECTRONICALLY SIGNED> By: Luis Torres MD, FACC 07/22/18 1557 1557 1557 Luis Torres MD, FACC /INF
[2018-07-22 16:27] VITALS: BP 156/72
[2018-07-22 20:10] VITALS: BP 100/52
[2018-07-23] VITALS (10 sets, daily range): BP systolic 136–178; BP diastolic 72–90
[2018-07-23 06:04] LABS: INR 1.1; PROTIME 11.5 Seconds (9.20-11.50)
[2018-07-23 06:16] LABS: CALCIUM 8.8 mg/dL (8.5-10.1); CREATININE 0.9 mg/dL (0.6-1.3); POTASSIUM 4.3 mmol/L (3.5-5.1)
--- NOTE | 2018-07-23 17:55 | CARD ---
[address] [address] CARDIAC CATH REPORT Name: MAGGIE MORALES Room: [address] IN [facility]#: [id number] Admission: 07/19/18 Attend Phys: Asher Keith MD Discharge: Date of : 47 Report #: [id number] THIS REPORT FOR: //name// APPROVED REPORT Study performed: 07/23/2018 08:46:43 Patient Details Patient Status: In-Patient Room #: 212 The patient is a 73 year-old female Event Personnel Gordon Dominguez Sagger Soak, Penny Frances RN Profiling Machine Operator, Oc Hussein (R) Monitor, Priscilla Steele GARMENT PARTS CUTTER MACHINE Scrub Procedures Performed Left Heart Cath Coronaries, Bypass Grafts [id number] Hemostasis w/ Mynx Indication Positive stress test, Chest pain Risk Factors Arterial Hypertension, Coronary Artery Disease, Diabetes Previous Procedures/Diagnoses Previous CABG, Previous Valve Surgery Procedure Narrative The patient was brought electively to the Cardiac Catheterization Laboratory and was prepped and draped in a sterile manner. The right femoral was infiltrated with 2% Lidocaine subcutaneous anesthesia. A 6fr. Ultimam sheath was inserted into the right femoral artery. Coronary angiography was performed using coronary diagnostic catheters. The right coronary system was accessed and visualized with a 6fr JR 4 catheter. The left coronary system was accessed and visualized with a 6fr JL 4 catheter. The left ventricle was accessed and visualized with a 6fr Pigtail catheter. Left ventricular/Aortic Valve gradient assessed via catheter pullback. Left ventriculogram was performed in LI projection. Closure device was deployed with a 6 Fr 6fr Mynx. The patient tolerated the procedure well and there were no complications associated with the procedure. There was no hematoma. arteriograms of the SVG's and HERNANDEZ graft performed using the [place] [address] CARDIAC CATH REPORT Name: MAGGIE MORALES Room: [address] IN ..#: [id number] Admission: 07/19/18 Attend Phys: Asher Keiht MD Discharge: Date of : 47 Report #: [id number] Intraoperative Conscious Sedation Sedation start time: 14:48 Case end Time: 15:24 Versed 2 mg Fluoro Time: 5.20 minutes Dose: DAP 75008.00 cGycm2 1294.22 mGy Contrast Type and Amount: Omnipaque 180 ml Coronary Angiography The patient's coronary anatomy is left dominant. [place] Artery Percent Stenosis HERNANDEZ graft appeared to go to the second diagonal branch and the diagonal artery was occluded after insertion of the graft. However retrograde the graft filled the lad. Patent SVG to the PDA of the distal circumflex. Second SVG noted that went to a distal marginal brnach of the circumflex. Diagnostic Cath Left Main 30% distal stenosis Diagonal 2 100% occluded after insertion of HERNANDEZ graft Circumflex 80% ostial stenosis. OM2 100% occluded L PDA 100% occluded Right Coronary 0% stenosis Left Ventriculography The left ventricle is normal in size with normal contractility. The left ventricular ejection fraction is estimated to be 60-65%. Left ventricular wall motion abnormalities are not present. There is no mitral insufficiency. Hemodynamics The aortic pressure is 180/77 mmHg with a mean of mmHg. The left ventricular pressure is 183/12 mmHg with a mean of mmHg. The left ventricular end diastolic pressure is 15 mmHg. There was no gradient across the aortic valve upon pullback. Pullback from the left ventricle to the aorta revealed no gradient across the aortic valve. Conclusion 1. Marginal branch of the circumflex and distal circumflex were occluded 2. Patent HERNANDEZ graft that appeared [place] [address] CARDIAC CATH REPORT Name: MAGGIE MORALES Room: [address] IN [facility]#: [id number] Admission: 07/19/18 Attend Phys: Asher Keith MD Discharge: Date of : 47 Report #: [id number] branch, although no antegrade flow noted into the diagonal artery. Retrograde the HERNANDEZ graft had flow into the LAD 3. Patent SVG to the PDA branch of the distal circumflex 4. Patent SVG to the distal marginal branch of the circumflex 5. Normal LV function with no mitral regrugitation Recommendations Aggressive Medical Therapy <ELECTRONICALLY SIGNED> By: Gordon Dominguez MD, FACC 07/23/18 1754 [id number] alberto Dominguez MD, FACC /INF
[2018-07-24] VITALS: BP 109/53; BP 147/81
[2018-07-24 04:00] VITALS: BP 148/75
[2018-07-24 04:49] LABS: HEMATOCRIT 37.5 % (37.0-47.0); HEMOGLOBIN 12.1 gm/dL (12.0-15.0); MCH 28.2 pg (26.0-34.0); MCHC 32.2 g/dL (28.0-37.0); MCV 87.6 fL (80.0-100.0); NUCLEATED RBCS 0 /100WBC; PLATELET COUNT* 182 thou/uL (150-400); RBC 4.28 mil/uL (4.20-5.00); RDW-CV 15.5 % (10.5-14.5); WBC 8.2 thou/uL (4.0-11.0)
[2018-07-24 04:52] LABS: INR 1.2; PROTIME 11.9 Seconds (9.20-11.50)
[2018-07-24 05:05] LABS: CALCIUM 9.1 mg/dL (8.5-10.1); CREATININE 0.7 mg/dL (0.6-1.3)
[2018-07-24 05:53] LABS: ABSOLUTE LYMPHOCYTES 0.3 thou/uL (0.8-5.3); ABSOLUTE MONOCYTES 0.2 thou/uL (0.0-1.2); ABSOLUTE NEUTROPHILS 7.6 thou/uL (1.6-8.1)
[2018-07-24 05:54] LABS: PLATELET ESTIMATE ADEQUATE
[2018-07-24 05:59] LABS: ANISOCYTOSIS 1+; OVALOCYTES Occasional; POIKILOCYTOSIS 1+
[2018-07-24 09:01] VITALS: BP 148/75
[2018-07-24 12:00] VITALS: BP 126/73
[2018-07-24] MEDS ORDERED: ATORVASTATIN CA40 MG PO (12:28)
[2018-07-24] MEDS ORDERED: CLONIDINE HCL0.2 M2 PO (12:29)
[2018-07-24] MEDS ORDERED: CARVEDILOL3.125 MG PO (12:29)
[2018-07-24] MEDS ORDERED: COZAAR100 MG PO (12:29)
[2018-07-24] MEDS ORDERED: CHLORTHALIDONE25 MG PO (12:30)
[2018-07-24] MEDS ORDERED: TYLENOL PM EX-1 EACH PO (13:32)
[2018-07-24] MEDS ORDERED: HYZAAR 100-251 EACH PO (13:32)
[2018-07-24] MEDS ORDERED: HYDRALAZINE 2525 MG PO (13:32)
[2018-07-24 13:34] VITALS: BP 126/73
== END 2018-07-24 14:40 | disposition home or self-care (01) | DRG 280 ==
LOC: M.2W 18:02
PROVIDERS: Family Medicine; Internal Medicine; Internal Medicine Cardiovascular Disease; Nurse Practitioner Family; ADMIT Internal Medicine
DX: I25.110 Atherosclerotic heart disease of native coronary artery with unstable angina pectoris (principal); I50.33 Acute on chronic diastolic (congestive) heart failure; I21.4 Non-ST elevation (NSTEMI) myocardial infarction; E11.9 Type 2 diabetes mellitus without complications; E03.9 Hypothyroidism, unspecified; G47.33 Obstructive sleep apnea (adult) (pediatric); E78.00 Pure hypercholesterolemia, unspecified; I49.5 Sick sinus syndrome; I48.2 Chronic atrial fibrillation; F03.90 Unspecified dementia, unspecified severity, without behavioral disturbance, psychotic disturbance, mood disturbance, and anxiety; G25.81 Restless legs syndrome; I11.0 Hypertensive heart disease with heart failure; Z86.73 Personal history of transient ischemic attack (TIA), and cerebral infarction without residual deficits; Z88.8 Allergy status to other drugs, medicaments and biological substances; Z82.3 Family history of stroke; Z82.49 Family history of ischemic heart disease and other diseases of the circulatory system; Z81.8 Family history of other mental and behavioral disorders; Z95.1 Presence of aortocoronary bypass graft; Z88.2 Allergy status to sulfonamides; Z91.041 Radiographic dye allergy status; Z95.0 Presence of cardiac pacemaker; Z79.899 Other long term (current) drug therapy